=== PATIENT | female | born 1995 | race Caucasian/White ===

== ENCOUNTER 2021-07-19 06:08 | Emergency (ER) | payer BC ==
[~2021-07-19] VITALS: Ht 162.6 cm; Wt 121.1 kg
[2021-07-19 06:30] VITALS: BP_SYST 138
--- NOTE | 2021-07-19 06:51 | NUR ---
moved to ed 5
--- NOTE | 2021-07-19 06:52 | NUR ---
reports abscess to left lower abdominal wall
--- NOTE | 2021-07-19 07:11 | NUR ---
er at bedside
[2021-07-19] MEDS ORDERED: CLIN-142 PO (07:20)
[2021-07-19 07:26] VITALS: BP_SYST 138
--- NOTE | 2021-07-19 07:26 | NUR ---
patient cleared for dishcarge at this time. advised to follow up with pcp and return if condition worsens. no other complaints or concerns at this time following discharge teaching.
== END 2021-07-19 07:26 | disposition home or self-care (01) ==
LOC: SED 06:08
DX: L02.211 Cutaneous abscess of abdominal wall (principal); Z79.899 Other long term (current) drug therapy
CPT/HCPCS: 99283